=== PATIENT | female | born 1965 ===

== ENCOUNTER 2024-07-04 11:14 | Inpatient (IN) | payer OTHER ==
[~2024-07-04] VITALS: Ht 205.7 cm; Wt 81.6 kg
[2024-07-04] MEDS ORDERED: PROPRANOLOL HCL10 MG PO (12:27)
[2024-07-04] MEDS ORDERED: NEURONTIN800 MG PO (12:28)
[2024-07-04] MEDS ORDERED: METHIMAZOLE10 MG PO (12:28)
[2024-07-04 12:32] VITALS: BP 111/77
[2024-07-07] MEDS ORDERED: DEXAMETHASONE SODIUM PHOSPHATE 4 MG/ML VIAL ONE (07:05)
[2024-07-07] MEDS ORDERED: ONDANSETRON HCL 2 MG/ML VIAL IV PRN (09:30)
[2024-07-07] MEDS ORDERED: ENALAPRILAT DIHYDRATE 1.25 MG/ML VIAL IV PRN (09:30)
[2024-07-07] MEDS ORDERED: MORPHINE SULFATE 4 MG/ML VIAL IV ONE (12:40)
[2024-07-07] MEDS ORDERED: ONDANSETRON HCL 2 MG/ML VIAL ONE (16:04)
[2024-07-07] MEDS ORDERED: Calcium Carbonate 1 TAB TABLET PO SCH ×2 (17:00→21:00)
[2024-07-07] MEDS ORDERED: CYCLOBENZAPRINE HCL 5 MG TABLET PO SCH (17:00)
[2024-07-07] MEDS ORDERED: GABAPENTIN 100 MG CAPSULE PO SCH (17:00)
[2024-07-07] MEDS ORDERED: CALCITRIOL 0.5 MCG CAPSULE PO SCH (17:00)
[2024-07-07] MEDS ORDERED: TRAMADOL HCL 50 MG TABLET PO SCH (17:00)
[2024-07-07] MEDS ORDERED: ACETAMINOPHEN 500 MG GEL..CAP PO SCH (17:00)
[2024-07-07 17:30] VITALS: BP 110/74; O2SAT 98
[2024-07-07] MEDS ORDERED: DIPHENHYDRAMINE HCL 30 MG,LIDOCAINE HCL 30 ML,MAG HYDROX/ALUMINUM HYD/SIMETH 30 ML PO SCH (19:46)
[2024-07-07] MEDS ORDERED: PANTOPRAZOLE SODIUM 40 MG/VIAL VIAL IV PUSH SCH (21:00)
[2024-07-07] MEDS ORDERED: LIDOCAINE HCL 60 ML,MAG HYDROX/ALUMINUM HYD/SIMETH 60 ML,DIPHENHYDRAMINE HCL 150 MG MM SCH (21:00)
[2024-07-08 00:10] VITALS: BP 96/58; O2SAT 95
[2024-07-08] MEDS ORDERED: LEVOTHYROXINE SODIUM 125 MCG TABLET PO SCH (06:00)
[2024-07-08 08:00] VITALS: BP 93/59; O2SAT 95
[2024-07-08] MEDS ORDERED: PROPRANOLOL HCL 10 MG TABLET PO SCH (09:00)
[2024-07-08] MEDS ORDERED: GABAPENTIN 800 MG TABLET PO SCH (09:00)
== END 2024-07-08 14:47 | disposition home or self-care (01) | DRG 627 ==
LOC: O/R 07-07 05:24 → SURG 07-07 05:24 → SURH 07-07 11:15 → SURG 07-07 13:01 → SURH 07-07 15:15 → SURG 07-08 14:47
PROVIDERS: ADMIT Surgery; ATTEND Surgery
PROC: 0GTK0ZZ Resection of Thyroid Gland, Open Approach (ICD-10-PCS; principal; 2024-07-07 15:15)
DX: E06.3 Autoimmune thyroiditis (principal); E05.00 Thyrotoxicosis with diffuse goiter without thyrotoxic crisis or storm